=== PATIENT | male | born 1960 | race American Indian/Alaskan Native ===

== ENCOUNTER 2019-09-19 12:14 | Day surgery (SDC) | payer BC ==
[2019-09-19] MEDS ORDERED: LACTATED RINGERS 1,000 ML IV SCH (12:33)
[2019-09-19] MEDS ORDERED: ONDANSETRON 4 MG/2 ML INJ IV PRN (12:54)
[2019-09-19] MEDS ORDERED: fentaNYL 100 MCG/2 ML INJ IV PRN (12:54)
--- NOTE | 2019-09-19 12:55 | Anesthesia Day of Surgery ---
Anesthesia Day of Surgery - Day of Surgery Patient Examined: Yes Patient H&P Reviewed: Yes Patient is NPO: Yes
--- NOTE | 2019-09-19 12:56 | Anesthesia Consultation ---
Anesthesia Consult and Med Hx Date of service: 09/19/19 - Airway Anesthetic Teeth Evaluation: Good, Partials ROM Head & Neck: Adequate Mental/Hyoid Distance: Adequate Mallampati Class: Class II Intubation Access Assessment: Good - Pre-Operative Health Status ASA Pre-Surgery Classification: ASA2 Proposed Anesthetic Plan: General - Pulmonary Hx Smoking: Yes Hx Asthma: No COPD: No Hx Pneumonia: No Hx Sleep Apnea: No (ADINA PRE SCREEN HIGH RISK) - Cardiovascular System Hx Hypertension: Yes (States he can run up two flights of stairs) Hx Heart Attack/AMI: No - Central Nervous System Hx Back Pain: No Hx Psychiatric Problems: No - Endocrine Hx End Stage Renal Disease: No - Hematic Hx Anemia: No Hx Sickle Cell Disease: No - Other Systems Hx Alcohol Use: Yes (OCC. BEER OR VODKA) Hx Substance Use: No Hx Cancer: No (ELEVATED PSA NOW )
[2019-09-19] MEDS ORDERED: MIDAZOLAM 2 MG/2 ML INJ IV NR (13:00)
[2019-09-19] MEDS ORDERED: GENTAMICIN/NS 80 MG/100 ML 100 ML IV NR (13:07)
[2019-09-19] MEDS ORDERED: ceFAZolin/STERILE WATER 2 GM/20 ML SYRINGE IV NR (13:08)
[2019-09-19] MEDS ORDERED: propofoL 200 MG/20 ML VIAL IV ONE (13:41)
[2019-09-19] MEDS ORDERED: fentaNYL 100 MCG/2 ML INJ ONE (13:41)
[2019-09-19] MEDS ORDERED: ONDANSETRON 4 MG/2 ML INJ ONE (13:43)
[2019-09-19] MEDS ORDERED: METOPROLOL TARTRATE 5 MG/5 ML INJ IV ONE (13:43)
[2019-09-19] MEDS ORDERED: WATER FOR IRRIG STERILE 2000 ML IR ONE (14:26)
[2019-09-19] MEDS ORDERED: ePHEDrine SULFATE 50 MG/1 ML INJ ONE (14:36)
[2019-09-19] MEDS ORDERED: LIDOCAINE MPF (2%) 20 MG/1 ML VIAL 5 ML ONE (14:40)
[2019-09-19] MEDS ORDERED: LACTATED RINGERS 1,000 ML ONE (14:46)
--- NOTE | 2019-09-19 15:00 | Post Operative Note ---
Date of procedure: 09/19/19 Pre-op diagnosis: inc psa micro heme Post-op diagnosis: same Findings: 21 grams Procedure: cysto rpg pus bx Anesthesia: GETA Surgeon: ADOLPH ALVARADO Estimated blood loss: minimal Pathology: list (prostate) Specimen disposition: to lab Condition: stable Disposition: PACU
--- NOTE | 2019-09-19 15:02 | Discharge Summary ---
Short Stay Discharge Plan Activity: other (inc fluids no straining ) Weight Bearing Status: Full Weight Bearing Diet: low fat, low cholesterol, low salt Special Instructions: other (as above) Follow up with: PRIMARY CARE, [Primary Care Provider] - 7 Days ADOLPH ALVARADO MD [Staff Physician] - 7 Days
--- NOTE | 2019-09-19 15:40 | Operative Report ---
PREOPERATIVE DIAGNOSES: Elevated PSA, microscopic hematuria. POSTOPERATIVE DIAGNOSES: Elevated PSA, microscopic hematuria. PROCEDURE: Cystoscopy, retrograde. Prostate biopsy under ultrasound guidance. SURGEON: Dr. Wynn. ANESTHESIA: General. FINDINGS: This gentleman presents for urological evaluation, now presents for ____ biopsies. DESCRIPTION OF PROCEDURE: The patient was brought to the operating room and placed on the operating table. Following induction of anesthesia, placed in the lithotomy position, prepped and draped in usual sterile fashion. Cystourethroscopy showed minimal prostatic enlargement with a small prostatic middle lobe beginning more to the right side and ____ cystitis cystica. Retrograde showed good filling and good drainage. Bladder was not trabeculated. The ultrasound was placed in with Betadine. He was medicated with antibiotics. Six biopsies on the right and the left. Imaging was excellent. A 21 grams prostate. The patient tolerated the procedure well and brought to the recovery in stable condition. JOB# [id number] KELSIE/DIVYA
--- NOTE | 2019-09-19 16:43 | Post Anesthesia Evaluation ---
- Post Anesthesia Evaluation Patient Participated: Yes Airway Patent: Yes Stable Respiratory Function: Yes Nausea/Vomiting: No Temp > 96.8F: Yes Pain Manageable: Yes Adequeate Hydration: Yes Anesthesia Complications: No Block Receding Appropriately: Not Applicable Patient on Ventilator: No
[2019-09-19 16:46] VITALS: BP 127/69
--- NOTE | 2019-09-19 17:15 | Fluoroscopy Report ---
INTRAOPERATIVE FLUOROSCOPY: RETROGRADE UROGRAPHY INDICATION / CLINICAL INFORMATION: ELEVATED PSA. TECHNIQUE: Intraoperative spot images were obtained during the procedure. FINDINGS: Retrograde injection of the right ureter shows normal right ureter and right renal collecting system. Small bubble present in the mid right ureter. Retrograde injection of the left ureter shows normal ureter and renal collecting system. Fluoroscopy Time: 13 seconds. Fluoroscopy Images: 5. Signer Name: Jose Ramon Marti MD Signed: 09/19/2019 5:10 PM Workstation Name: [id number]
--- NOTE | 2019-09-20 08:00 | Ultrasound Report ---
ULTRASOUND TRANSRECTAL HISTORY: Elevated PSA, ultrasound guidance for prostate biopsy. FINDINGS: Transrectal ultrasound guidance was provided by radiology during prostate biopsy performed by the uro logist. 2 ultrasound images are presented. The prostate gland is well-defined but slightly heterogene ous. The prostate measures 4.3 x 2.6 x 3.8 cm. Prostate volume is calculated at 21.7 cc. One image de monstrates the biopsy needle transversing the prostate gland. Please correlate with the procedural re port by urology. IMPRESSION: Successful prostate biopsy with transrectal ultrasound guidance. Signer Name: Kvng Sin Jr, MD Signed: 09/20/2019 7:56 AM Workstation Name: [id number]
== END 2019-09-19 17:28 | disposition home or self-care (01) ==
LOC: OR 12:14
PROVIDERS: ATTEND Urology
DX: R97.20 Elevated prostate specific antigen [PSA] (principal); R31.29 Other microscopic hematuria; I10 Essential (primary) hypertension; F17.210 Nicotine dependence, cigarettes, uncomplicated; E78.00 Pure hypercholesterolemia, unspecified; K21.9 Gastro-esophageal reflux disease without esophagitis; Z72.89 Other problems related to lifestyle; Z79.899 Other long term (current) drug therapy; Z98.890 Other specified postprocedural states
CPT/HCPCS: 36415; 52005; 55700; 74420; 76872; 84132; 88305; 88342; 88344; A4217; J0690; J1580; J2250; J2405; J2704; J3010; J7120; Q9967